=== PATIENT | female | born 1975 | race African-American/Black ===

== ENCOUNTER 2021-07-25 20:40 | Emergency (ER) | payer OTHER, SELFPAY ==
[2021-07-25 20:54] VITALS: BP 129/70; PULSE 99; BMI 36.0
[2021-07-25] MEDS ORDERED: ACETAMINOPHEN 500 MG TABLET (FP) PO ONE (21:44)
[2021-07-25] MEDS ORDERED: ACETAMINOPHEN 500 MG TABLET (FP) ONE (22:09)
== END 2021-07-25 22:47 | disposition home or self-care (01) ==
LOC: JERFT 20:40 → JER 20:40 → JERFT 22:47
DX: M25.522 Pain in left elbow (principal)
CPT/HCPCS: 73070-TC-LT-FY; 73090-TC-LT-FY; 73110-TC-LT-FY; 99284-25

== ENCOUNTER 2021-09-25 19:48 | Emergency (ER) | payer OTHER ==
[2021-09-25 22:15] LABS: SARS COV-2 MOLECULAR Negative (Negative)
[2021-09-29 15:07] LABS: SARS-CoV-2 NAA Not Detected (Not Detected)
== END 2021-09-25 20:05 | disposition home or self-care (01) ==
LOC: JVIRT 19:48
DX: Z20.822 Contact with and (suspected) exposure to COVID-19 (principal)
CPT/HCPCS: C9803; Q3014-GT; U0003; U0005

== ENCOUNTER 2021-10-04 18:37 | Emergency (ER) | payer OTHER | END 2021-10-04 19:13 | disposition home or self-care (01) | LOC: JVIRT 18:37 | DX: M79.10 Myalgia, unspecified site (principal); Z11.52 Encounter for screening for COVID-19 | CPT/HCPCS: C9803; Q3014-GT; U0003; U0005 ==

== ENCOUNTER 2022-02-09 15:04 | Emergency (ER) | payer OTHER ==
[2022-02-09 15:42] VITALS: BP 123/82; PULSE 96; TEMP 97.6; BMI 35.5
[2022-02-09] MEDS ORDERED: KETOROLAC TROMETHAMINE 15 MG/ML VIAL IM ONE (15:44)
[2022-02-09] MEDS ORDERED: METHOCARBAMOL 500 MG TABLET PO ONE (15:44)
[2022-02-09] MEDS ORDERED: LIDOCAINE 5% TOPICAL PATCH TP ONE (15:46)
[2022-02-09] MEDS ORDERED: METHOCARBAMOL 500 MG TABLET ONE (16:14)
[2022-02-09] MEDS ORDERED: LIDOCAINE 5% TOPICAL PATCH ONE (16:14)
[2022-02-09] MEDS ORDERED: KETOROLAC TROMETHAMINE 15 MG/ML VIAL ONE (16:15)
[2022-02-09] MEDS ORDERED: LIDOCAINE PATCH REMOVAL MC SCH (22:00)
== END 2022-02-09 16:20 | disposition home or self-care (01) ==
LOC: JER 15:04 → JERFT 15:04
PROC: 3E0233Z Introduction of Anti-inflammatory into Muscle, Percutaneous Approach (ICD-10-PCS; principal; 2022-02-09)
DX: M54.50 Low back pain, unspecified (principal)
CPT/HCPCS: 99284-25

== ENCOUNTER 2022-03-25 20:32 | Emergency (ER) | payer OTHER ==
[2022-03-25 20:53] VITALS: BP 141/82; PULSE 103; TEMP 98.8; BMI 34.0
[2022-03-25] MEDS ORDERED: DEXAMETHASONE SOD PHOSPHATE 10 MG/1 ML VIAL ONE (21:07)
[2022-03-25] MEDS ORDERED: DEXAMETHASONE SOD PHOSPHATE 10 MG/1 ML VIAL PO ONE (21:19)
== END 2022-03-25 22:44 | disposition home or self-care (01) ==
LOC: JVIRT 20:32
DX: J06.9 Acute upper respiratory infection, unspecified (principal)
CPT/HCPCS: 0241U-QW; 99283-25; J1100